=== PATIENT | female | born 1955 | race Caucasian/White ===

== ENCOUNTER 2016-12-25 22:34 | Emergency (ER) | payer OTHER ==
[~2016-12-25 22:34] MED LIST: ALTACE10 M2 PO; ALTACE10 M4 PO; ALTACE5 M1; AMOXICILLIN875 MG PO; ASPIR 8181 M1 PO; ASPIRIN325 MG; BENADRYL25 MG; CIPRO500 M2 PO; CRESTOR20 MG PO; GLUCOPHAGE1000 M1 PO; GLUCOPHAGE1000 MG; JANUVIA100 MG; LEVEMIR100 U/M SQ; LEVEMIR100 U/ML SQ; LOPRESSOR50 M1 PO; METOPROLOL TART25 MG PO; NIACIN1000 MG PO; NOVOLOG100 U/M SQ; NOVOLOG100 UNIT/2 SQ; NOVOLOG100 UNITS/ SC; PHENERGAN W/CO120 ML PO; TAMIFLU75 MG PO; TYLENOL500 MG; ZANTAC150 M1 PO; ZANTAC150 MG; ZOCOR20 MG
[2016-12-26 00:12] LABS: BASO % 0.1 % (0-2); EOS % 2.4 % (0-7); EOSINOPHIL ABSOLUTE COUNT 0.2 tho/cmm (0.0-0.7); HCT-HEMATOCRIT 44.1 % (34.0-49.0); HGB-HEMOGLOBIN 15.1 gm/dl (12.0-15.5); IMMATURE GRANULOCYTES ABSOLUTE 0.02 tho/cmm (0-0.03); IMMATURE GRANULOCYTES PERCENT 0.2 % (0-0.3); LYMPH % 32.5 % (20-45); LYMPH ABSOLUTE COUNT 2.6 tho/cmm (0.8-4.5); MCH (MEAN CORPUSCULAR HGB) 30.9 pg (28.0-32.0); MCHC MEAN CORPUSCULAR HGB CONC 34.2 % (32.0-36.0); MCV (MEAN CELL VOLUME) 90.4 fl (82.0-96.0); MEAN PLATELET VOLUME 10.7 cmc (9.4-12.4); MONO % 7.9 % (0-12); MONOCYTE ABSOLUTE COUNT 0.6 tho/cmm (0.0-1.2); NEUTROPHIL ABSOLUTE COUNT 4.6 tho/cmm (1.6-8.0); NEUTROPHIL-AUTOMATED 4.6 tho/cmm (1.6-8.0); NEUTROPHILS % 56.9 % (40-80); PLATELET COUNT 238 tho/cmm (150-450); RED BLOOD COUNT 4.88 mil/cmm (4.00-5.20); RED CELL DISTRIBUTION WIDTH 12.7 % (12.4-16.4)
[2016-12-26 00:13] LABS: KETONE-BETA (WHOLE BLOOD) 0.4 mmol/L (0.0-0.6)
[2016-12-26 00:23] LABS: URINE BILIRUBIN NEGATIVE (NEG); URINE BLOOD NEGATIVE (NEG); URINE GLUCOSE (UA) LARGE (NEG); URINE KETONE MODERATE (NEG); URINE LEUKOCYTE ESTERASE POSITIVE (NEG); URINE NITRITE POSITIVE (NEG); URINE PROTEIN SMALL (NEG); URINE SPECIFIC GRAVITY 1.015 (1.003-1.030)
[2016-12-26 00:28] LABS: URINE APPEARANCE HAZY; URINE COLOR YELLOW
[2016-12-26 00:28] LABS: ALB/GLOB RATIO 0.8 (0.8-2.0); ALBUMIN 3.3 g/dl (3.5-5.0); ALKALINE PHOSPHATASE 104 U/L (33-138); ALT/SGPT 35 U/L (12-78); BILIRUBIN,TOTAL 0.3 mg/dl (0-1.5); BLOOD UREA NITROGEN 20 mg/dl (6-24); CALCIUM 9.1 mg/dl (8.5-10.5); CARBON DIOXIDE-VENOUS 26 mmol/L (22-32); CHLORIDE 98 mmol/l (96-110); CREATININE 0.67 mg/dl (0.50-1.10); GLUCOSE 359 mg/dL (70-110); SODIUM 134 mmol/L (135-145); eGFR VALUE FOR BLACK >90 mL/Min
[2016-12-26 00:30] LABS: URINE BACTERIA 4+; URINE EPITHELIAL CELLS RARE /[HPF] (0-10); URINE RBC 0 /[HPF] (0-5)
[2016-12-26 00:42] LABS: ANION GAP 14 mmol/L (0-20); AST/SGOT 21 U/L (10-40); POTASSIUM 4.2 mmol/L (3.7-5.1)
[2016-12-26] MEDS ORDERED: NOVOLOG100 UNITS/ SC (00:44)
[2016-12-26] MEDS ORDERED: LEVAQUIN750 M1 PO (01:01)
[2016-12-26] MEDS ORDERED: NOVOLOG FL100 UNIT/2 SC (01:01)
== END 2016-12-26 01:23 ==
LOC: EDMED 22:34
PROVIDERS: Emergency Medicine
DX: R73.9 Hyperglycemia, unspecified (principal); R51 Headache; Z91.14 Patient's other noncompliance with medication regimen; Z76.0 Encounter for issue of repeat prescription; Z87.442 Personal history of urinary calculi
CPT/HCPCS: J7030